=== PATIENT | female | born 1965 | race African-American/Black ===

== ENCOUNTER 2018-08-09 17:29 | Emergency (ER) | payer OTHER ==
[~2018-08-09] VITALS: Ht 157.5 cm; Wt 81.6 kg
[~2018-08-09 17:29] MED LIST: ASPIRIN CHILDRE81 MG PO; ATENOLOL25 MG PO; AUGMENTIN 875 M1 TAB PO; CRESTOR 10MG10 MG PO; DIOVAN 40 MG40 MG PO; GLUCOPHAGE500 MG PO; IBUPROFEN800 MG PO; MASON NATURAL325 MG PO; NEXIUM 40MG40 MG PO; PERCOCET 325 MG1 TA2 PO; TELMISARTAN40 MG PO
--- NOTE | 2018-08-09 18:02 | RADIOLOGY REPORT ---
EXAMINATION: CHEST 2 VIEWS CLINICAL INFORMATION: Chest pain. COMPARISON: None. TECHNIQUE: PA and lateral views of the chest were obtained. FINDINGS: The cardiac silhouette is not enlarged. The mediastinal and hilar contours are unremarkable. There are neither pleural effusions nor pneumothoraces. There are no consolidations. The osseous structures are unremarkable. IMPRESSION: No evidence for acute disease.
[2018-08-09 18:14] LABS: ABSOLUTE BASOPHIL COUNT 0 /CUMM (0.0-0.2); ABSOLUTE EOSINOPHIL COUNT 0.1 /CUMM (0.0-0.7); ABSOLUTE GRANULOCYTE CT 6.1 /CUMM (1.4-6.5); ABSOLUTE LYMPH COUNT 2.5 /CUMM (1.2-3.4); ABSOLUTE MONOCYTE COUNT 0.5 /CUMM (0.10-0.60); BASOPHIL % 0.1 % (0.0-2.0); EOSINOPHIL % 1.6 % (0-5); HEMATOCRIT 42.7 % (37-47); MEAN CORPUSCULAR HGB 26.6 PG (27.0-31.0); MEAN CORPUSCULAR HGB CONC 31.8 G/DL (33.0-37.0); MEAN CORPUSCULAR VOLUME 83.4 FL (81.0-99.0); MEAN PLATELET VOLUME 7.8 FL (7.4-10.4); PLATELET COUNT 297 /CUMM (130-400); RBC DISTRIBUTION WIDTH 14.6 % (11.5-14.5); RED BLOOD CELL CT 5.11 /CUMM (4.20-5.40); WHITE BLOOD CELL COUNT 9.3 /CUMM (4.8-10.8)
--- NOTE | 2018-08-09 18:16 | ED GENERAL ADULT ---
History of Present Illness General Chief Complaint: Chest Pain Stated Complaint: "I WAS HAVING CP EARLIER" PER PT Source: patient Exam Limitations: no limitations Vital Signs & Intake/Output Vital Signs & Intake/Output Vital Signs Date Time Temp Pulse Resp B/P B/P Pulse O2 O2 Flow FiO2 Mean Ox Delivery Rate 08/09 1924 98.2 67 16 148/79 99 Room Air 08/09 1808 Room Air 08/09 1735 96.5 68 18 155/81 98 Room Air Allergies Coded Allergies: NO KNOWN ALLERGIES (09/01/15) Reconcile Medications AMOXICILLIN/POTASSIUM CLAV (Augmentin 875-125 Tablet) 875 MG/125 MG TAB 1 TAB PO BID DENTAL INFECTION Aspirin (Children's Aspirin) 81 MG TAB.CHEW 1 TAB PO DAILY HEART HEALTH Atenolol 25 MG TABLET 1 TAB PO DAILY BLOOD PRESSURE Esomeprazole (Nexium) 40 MG CAPSULE.DR 1 CAP PO DAILY GI (Reported) Reason to Stop at ADM: Ferrous Sulfate 325 MG (65 MG IRON) TABLET 1 TAB PO DAILY SUPPLEMENT Ibuprofen 800 MG TAB 1 TAB PO TID PRN PAIN Metformin Hydochloride (Glucophage) 500 MG TABLET 1 TAB PO 0800,1700 DIABETES OXYCODONE HCL/ACETAMINOPHEN (Percocet 5-325 MG Tablet) 325 MG/5 MG TAB 1-2 TAB PO Q4-6 PRN PRN PAIN TEN ... [id number] Rosuvastatin Calcium (Crestor) 10 MG TABLET 1 TAB PO DAILY CHOLESTEROL ( Reported) Telmisartan 40 MG TAB 1 TAB PO DAILY BP (Reported) Triage Note: 52 Y/O FEMALE C/O CHEST PAIN THIS MORNING, "IT CAME AND WENT"; LASTING APPROX 30 MIN IN TOTAL. DENIES ANY PAIN AT PRESENT. DENIES ANY COMPLAINTS. STATES HER FAMILY JUST WANTED HER TO GET CHECKED OUT TAKEN FOR EKG Triage Nurses Notes Reviewed? yes HPI: 82-year-old female with past medical history significant for hypertension presents with chest pain this morning. Chest pain lasted about 10-15 minutes. Located mid substernal crushing and sharp in nature. Nonradiating. After the pain resolved went to work and was up and moving all day long did not exacerbate the pain. Turning certain directions and pressing on the chest exacerbates the pain. (Jean ARELLANO,Jaxon) Past History Travel History Traveled to [place] past 21 day No Medical History Any Pertinent Medical History? 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 Hx Contributory? No (Jaxon Pena MD) Review of Systems Review of Systems Constitutional: Reports: no symptoms, see HPI. EENTM: Reports: no symptoms. Respiratory: Reports: no symptoms. Cardiovascular: Reports: no symptoms. GI: Reports: no symptoms. Genitourinary: Reports: no symptoms. Musculoskeletal: Reports: no symptoms. Skin: Reports: no symptoms. Neurological/Psychological: Reports: no symptoms. Hematologic/Endocrine: Reports: no symptoms. Immunologic/Allergic: Reports: no symptoms. All Other Systems: Reviewed and Negative (Jaxon Pena MD) Physical Exam Physical Exam General Appearance: well developed/nourished, no apparent distress, comfortable Comments: Gen.: Well-nourished, well-developed, no acute respiratory distress. Head: Normocephalic, atraumatic. Eyes: Normal inspection bilaterally Ears: Normal inspection bilaterally Nose: Normal inspection Throat/mouth : Moist mucosa Neck: Supple, full range of motion, no goiter Heart: Regular rate and rhythm, no murmurs rubs or gallops Lungs: Clear to auscultation bilaterally with normal air entry Chest: Chest wall palpation reproduces the pain. Back: Normal range of motion Abdomen: Soft, nontender, nondistended, normal bowel sounds Extremities: Normal range of motion grossly, equal radial pulses, no cyanosis clubbing or edema Neurologic: Cranial nerves grossly intact, speech is clear Skin: warm and dry Psychiatric: Calm, cooperative, no apparent delusions or hallucinations Core Measures ACS in differential dx? Yes CVA/TIA Diagnosis: No Sepsis Present: No Sepsis Focused Exam Completed? No (Jaxon Pena MD) Progress Differential Diagnoses I considered the following diagnoses in my evaluation of the patient: I considered the following: Pericarditis- but the patient had no pericardial friction rub, no preceding viral illnesses and no EKG changes consistent with this. Acute coronary syndrome but the patient's EKG showed no acute changes, the troponin level was normal, the patient had a paucity of risk factors and the patient's clinical presentation wasn't consistent with this. Pneumothorax but the chest x-ray did not show this. Pneumonia but the chest x-ray did not show infiltrate. Pulmonary embolus but the patient had no resting tachycardia, was not hypoxic, had a paucity of risk factors and was PERC negative. Aortic aneurysm but the description of the patient's pain was inconsistent with this. The chest x-ray showed no widened mediastinum or other changes consistent with this. In addition the patient had a paucity of risk factors. Plan of Care: Orders Procedure Date/time Status TROPONIN LEVEL 08/09 2045 Complete EKG 08/09 2045 Active TROPONIN LEVEL 08/09 1735 Complete MAGNESIUM 08/09 1735 Complete COMPREHENSIVE METABOLIC PANEL 08/09 1735 Complete CBC WITHOUT DIFFERENTIAL 08/09 1735 Complete EKG 08/09 1730 Active Laboratory Tests 08/09/182048: Troponin I < 0.01 08/09/18 1744: Anion Gap 10, Estimated GFR > 60, BUN/Creatinine Ratio 17.1, Glucose 140 H, Calcium 9.4, Magnesium 1.8, Total Bilirubin 0.7, AST 24, ALT 44, Alkaline Phosphatase 69, Troponin I < 0.01, Total Protein 7.5, Albumin 4.4, Globulin 3.1, Albumin/Globulin Ratio 1.4, CBC w Diff NO MAN DIFF REQ, RBC 5.11, MCV 83.4, MCH 26.6 L, MCHC 31.8 L, RDW 14.6 H, MPV 7.8, Gran % 66.0, Lymphocytes % 26.7, Monocytes % 5.6, Eosinophils % 1.6, Basophils % 0.1, Absolute Granulocytes 6.1, Absolute Lymphocytes 2.5, Absolute Monocytes 0.5, Absolute Eosinophils 0.1, Absolute Basophils 0 Initial ED EKG: Sinus rhythm of 68. Normal axis. Appropriate r-wave progression. Nomal p waves. Negative for ST segment deviation. T-wave inversion in 3 and aVF which is present on prior EKG. No STEMI. Negative for interval changes from prior EKG. 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 Repeat EKG and troponin are stable. The patient is asymptomatic at this time and wishes to go home. (Ruchi ARELLANO,Fidencio Rajput) Departure Departure Condition: Stable Clinical Impression Primary Impression: Musculoskeletal chest pain Referrals: Jerry ARELLANO PHD,Morgan Sadler (PCP/Family) Departure Forms: Customer Survey General Discharge Information (Jaxon Pena MD) Departure Disposition: HOME OR SELF CARE Additional Instructions: Rest, no exertion or heavy lifting. Please follow-up with Dr. Edwards and your primary care physician on Sunday for reevaluation and further testing as indicated. Return if any concerns or sudden worsening. Please note that there might be incidental findings in your evaluation that are unrelated to the current emergency department visit. Please notify your primary care doctor about this emergency department visit in order to obtain and review all of the testing performed so that these incidental findings can be monitored as needed. If you had an x-ray performed, please understand that some fractures or other findings may not be seen on the initial set of x-rays. If your symptoms persist you might need a repeat set of x-rays to check for such a fracture. If you had a laceration evaluated, please understand that foreign bodies such as glass or wood may not be visible to the naked eye or on plain x-rays. If the wound becomes red, swollen, increasingly more painful or if there is any drainage from the wound, please have it reevaluated by a physician for the possibility of a retained foreign body. If you're unable to follow up as outlined in the discharge instructions please return to the emergency department. Thank you for choosing the [facility] Emergency Department for your care. It was a pleasure to serve you today. Fidencio Hopper M.D. [facility] (Ruchi ARELLANO,Fidencio Rajput) Critical Care Note Critical Care Note Critical Care Time: non-applicable (Jaxon Pena MD)
[2018-08-09 21:51] VITALS: BP 114/75
== END 2018-08-09 22:18 ==
LOC: ERH 17:29
PROVIDERS: Physician Assistant
DX: R07.89 Other chest pain (principal); I10 Essential (primary) hypertension; E11.9 Type 2 diabetes mellitus without complications; Z87.891 Personal history of nicotine dependence; Z79.82 Long term (current) use of aspirin; Z79.84 Long term (current) use of oral hypoglycemic drugs
CPT/HCPCS: 71046; 93005; 93010